=== PATIENT | male | born 1990 | race Caucasian/White ===

== ENCOUNTER 2018-09-17 14:47 | Emergency (ER) | payer OTHER ==
[~2018-09-17] VITALS: Ht 175.3 cm; Wt 70.8 kg
[2018-09-17 14:50] VITALS: Ht 175.3 cm; Wt 70.8 kg
[2018-09-17 15:28] VITALS: BP 147/92
== END 2018-09-17 15:51 | disposition home or self-care (01) ==
LOC: ED 14:47
DX: F12.90 Cannabis use, unspecified, uncomplicated (principal); Z88.0 Allergy status to penicillin